=== PATIENT | female | born 1960 | race Caucasian/White ===

== ENCOUNTER → 2021-05-11 | Outpatient (CLI) | payer BC ==
[~2021-05-11] MED LIST: ASPI-630 PO; ATOR40TA59 PO; METO-239 PO; ZINC50TA39 PO; vitamin d3 PO
== END ==
LOC: LAB 05-10 08:13
PROVIDERS: ATTEND Internal Medicine Gastroenterology
DX: Z01.812 Encounter for preprocedural laboratory examination (principal); R13.10 Dysphagia, unspecified; R63.4 Abnormal weight loss; R19.4 Change in bowel habit; Z20.822 Contact with and (suspected) exposure to COVID-19
CPT/HCPCS: C9803; U0003

== ENCOUNTER → 2021-05-14 | Day surgery (SDC) | payer BC ==
[~2021-05-14] MED LIST changes: +IPRATRPIUM/ALBUTEROL 0.5/2.5MG 3 ML NEBU. NEB PRN; +IV RINGERS SOLUTION,LACTATED 1,000 ML IV SCH; +LIDOCAINE 2% PF 5 ML VIAL. ONE; +MIDAZOLAM HCL PF 2 MG/2 ML VIAL. IV ONE; +ONDANSETRON PF 4 MG/2 ML VIAL. IV PRN; +PROPOFOL 10,000 MCG/ML (20ML) VIAL IV ONE
[2021-05-14 14:33] VITALS: BP 158/60
--- NOTE | 2021-05-18 14:07 | PATHOLOGY ---
[facility] Accession Number: [id number] . 01 Material submitted: . stomach - ANTRUM . 01 Clinical history: . EGD AND COLONOSCOPY GERD . 02 Diagnosis: Gastric biopsy, antrum: - Chronic gastritis, mild. (JPM:deb; 05/18/2021) S 05/18/2021 0934 Local . 02 Comment: Sections of the gastric antral biopsy show congestion and mild chronic inflammation with a few scattered admixed eosinophils and with a single small mucosal lymphoid aggregate. A properly controlled immunoperoxidase stain for Helicobacter is negative for Helicobacter organisms. There is no evidence of malignancy. (JPM:deb; 05/18/2021) . Special stain performed: Immunoperoxidase stain for Helicobacter . 02 Electronically signed: . Zaid Ramirez MD, Pathologist NPI- [id number] . 01 Gross description: . The specimen is received in formalin, labeled "W[place], Dayanna, antrum". Received is a single segment of pale espinoza tissue measuring 0.3 cm in maximum dimensions. The specimen is submitted entirely in cassette A1. ([facility]; 05/17/2021) NRI/NRI 05/17/2021 1545 Local . 02 Pathologist provided ICD-10: K29.50 . 02 CPT . 847917, [id number] Specimen Comment: A courtesy copy of this report has been sent to [phone], [phone] Specimen Comment: [id number] Specimen Comment: Report sent to / DR LOVING Specimen Comment: A duplicate report has been generated due to demographic updates. Performed at: 01 [facility] [address], [place], [place] [id number] MD Rikki Owen MD Phone: [phone] Performed at: [address] [id number] MD Zaid Ramirez MD Phone: [phone]
== END | disposition home or self-care (01) ==
LOC: SURG 11:43
PROVIDERS: ATTEND Internal Medicine Gastroenterology
DX: R63.4 Abnormal weight loss (principal); R12 Heartburn; K64.8 Other hemorrhoids; K57.30 Diverticulosis of large intestine without perforation or abscess without bleeding; K22.2 Esophageal obstruction; K29.50 Unspecified chronic gastritis without bleeding; K21.00 Gastro-esophageal reflux disease with esophagitis, without bleeding; K63.89 Other specified diseases of intestine; K31.89 Other diseases of stomach and duodenum; I10 Essential (primary) hypertension; F17.210 Nicotine dependence, cigarettes, uncomplicated; Z86.010 Personal history of colon polyps; Z79.899 Other long term (current) drug therapy; Z98.890 Other specified postprocedural states; Z79.82 Long term (current) use of aspirin
CPT/HCPCS: 43239; 45378; 88305; 88342; J2001; J2704; J7120; G0105

== ENCOUNTER → 2021-06-25 | Outpatient (CLI) | payer BC ==
[2021-05-14 14:33] VITALS: BP 158/60
[~2021-06-25] MED LIST changes: -IPRATRPIUM/ALBUTEROL 0.5/2.5MG 3 ML NEBU. NEB PRN; -IV RINGERS SOLUTION,LACTATED 1,000 ML IV SCH; -LIDOCAINE 2% PF 5 ML VIAL. ONE; -MIDAZOLAM HCL PF 2 MG/2 ML VIAL. IV ONE; -ONDANSETRON PF 4 MG/2 ML VIAL. IV PRN; -PROPOFOL 10,000 MCG/ML (20ML) VIAL IV ONE
--- NOTE | 2021-06-25 12:20 | RAD ---
History: 60-year-old a symptomatically the patient presents for routine screening mammogram. PROCEDURE: 3-D tomosynthesis was performed of the breasts bilaterally. 2-D C-view craniocaudal and mediolateral oblique digital mammograms were also generated. The images were also evaluated with Clerk puter-aided detection and the CAD results were analyzed. Previous: None available. This is considered a new baseline exam. FINDINGS: Density level B: There are scattered fibroglandular densities. There are no suspicious masses, suspic ious microcalcifications or areas of architectural distortion.Benign scattered calcifications are see n in both breasts IMPRESSION: Benign mammogram. Patient information was entered into the [facility] reminder system with a target due date for the next screening mammogram . Routine annual screening mammogram in one year ad vised. BI-RADS Category 2: Benign. A mammogram does not have 100% sensitivity and therefore a negative imaging study should not delay fu rther work up of a suspicious abnormality. PQRS compliance statement: Patient information was entered into the [facility] reminder system with a ta rget due date for the next screening mammogram . Routine annual screening mammogram in one year advis ed. "Our facility is accredited by the [employer] Mammography Program." Electronically signed by: Gertrudis Atkinson MD (06/25/2021 12:18 PM) [id number]
== END ==
LOC: MAMMO 07:47
PROVIDERS: ATTEND Internal Medicine
DX: Z12.31 Encounter for screening mammogram for malignant neoplasm of breast (principal)
CPT/HCPCS: 77063; 77067